=== PATIENT | female | born 1965 | race Caucasian/White ===

== ENCOUNTER → 2021-03-10 | Outpatient (CLI) | payer OTHER ==
--- NOTE | 2021-03-10 11:50 | Diagnostic Imaging Report ---
Lumbar spine at 1107 hours. INDICATION: Low back pain. 3 views were obtained. There are no prior studies available for comparison. FINDINGS: The lateral view shows fairly severe degenerative disc and bony disease at L5-S1 as well as 6 mm of anterior translation of L5 with respect of S1. There is mild narrowing of the disc space at L4-L5. The other intervertebral spaces are well maintained. There is no fracture or acute bony abnormality evident. There is no sign of a paraspinal mass. There is mild symmetrical sclerosis of the sacroiliac joints. IMPRESSION: 1. There is no evidence for an acute bony abnormality. 2. There is fairly severe degenerative disc and bony disease at L5-S1 including a grade 1 spondylolisthesis of L5 with respect to S1. 3. If there is clinical concern regarding spinal stenosis or nerve root encroachment, then MRI would be recommended for further study. Dictated by: Dictated on workstation # [id number]
== END ==
LOC: RAD 10:51
PROVIDERS: ATTEND Anesthesiology Pain Medicine
DX: Z02.71 Encounter for disability determination (principal); M51.37 Other intervertebral disc degeneration, lumbosacral region; M43.16 Spondylolisthesis, lumbar region
CPT/HCPCS: 72100

== ENCOUNTER → 2022-05-12 | Outpatient (CLI) | payer MEDICAID ==
--- NOTE | 2022-05-12 10:45 | Diagnostic Imaging Report ---
Indication: Palpable lump in front of the right ear. Sonographic interrogation of the area palpable lump anterior to the right ear was performed. There is a solid-appearing hypoechoic mass measuring 1.9 x 1.4 x 2.0 cm. This does show some increased vascularity. No other abnormalities are seen IMPRESSION: Solid mass at the area of palpable abnormality. Dedicated CT soft tissue neck study with contrast would be recommended for further evaluation. Dictated by: Dictated on workstation # [id number]
== END ==
LOC: RAD FS 08:46
PROVIDERS: ATTEND Otolaryngology Otolaryngology/Facial Plastic Surgery
DX: Q18.1 Preauricular sinus and cyst (principal)
CPT/HCPCS: 76536

== ENCOUNTER → 2022-05-18 | Outpatient (CLI) | payer MEDICAID ==
[~2022-05-18] MED LIST: CATHETER FLUSH 10 ML SYR IV PRN; HOLD METFORMIN - RECEIVED CONTRAST 20 ML VIAL IV SCH; IOHEXOL 350 MG/ML 100 ML (OMNIPAQUE 350) VIAL IV ONE; NS 100 ML (IVPB) BAG IV ONE
--- NOTE | 2022-05-18 14:56 | Diagnostic Imaging Report ---
CLINICAL INDICATION: Patient with preauricular cyst. EXAM: CT scan of the head and neck performed without and with 75 mL of Omnipaque 350 IV contrast. Sagittal and coronal reformatted images are created. Auto Exposure Controls were utilized during the CT exam to meet ALARA standards for radiation dose reduction. COMPARISON: Ultrasound of the head and neck soft tissue dated 05/12/2022. FINDINGS: CT NECK: There is a 1.9 cm x 1.7 cm x 1.9 cm (AP x Trans x CC) circumscribed mass in the superficial portion of the right parotid gland. This is located anterior to the right ear region. This mass demonstrates enhancement with Hounsfield units of 86 on postcontrast imaging and 51 Hounsfield units on noncontrast imaging. There are multiple lobulated enhancing masses seen near the tail of the right parotid gland. There are two closely adjacent to each other, but are smaller than the one measured above it. 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 There is a prominent right level II-A lymph node, which measures 2.0 cm x 1.6 cm in AP x transverse dimensions. Fatty hilum is seen in the region. There is no other significant neck soft tissue abnormality. The nasopharynx, oropharynx, hypopharynx, and laryngeal soft tissue structures are unremarkable. Thyroid gland is unremarkable. The remainder of the salivary glands are unremarkable. Visualized upper lung [place] are clear. There are degenerative spurs involving the cervical spine, most pronounced at C5-C6 level. There is ipyolykt-df-naadav loss of disc space height at the C5-C6 level. HEAD CT: There is no evidence of acute cerebral infarct, intracranial hemorrhage, or gross mass effect. There is no abnormal IV contrast enhancement. The brain parenchymal volume appears appropriate for patient's age. There is normal cheng-white matter distinction. There is no significant midline shift or herniation. The [place] vascular structures show no gross abnormality as visualized. The sellar and suprasellar regions show no significant abnormality. There is no evidence of hydrocephalus. The basal cisterns are unremarkable. The skull, extracranial soft tissue, and orbits are unremarkable. The paranasal sinuses are unremarkable. Temporal bones show no significant abnormality. IMPRESSION: 1: There are multiple lobulated enhancing masses involving the superficial portion of the right parotid gland. Largest one measures 1.9 cm in greatest dimension. These masses are anterior to the right ear and represent the areas of concern. 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 Other considerations include Warthin's tumors. Pathologic lymph nodes are suspected to be less likely. ENT consultation is suggested for further evaluation. 2: Nonspecific enlarged right level II-A lymph node. 3: The remainder of the neck soft tissue structures are unremarkable. 4: Unremarkable CT scan of the brain. Dictated by: Dictated on workstation # [id number]
== END ==
LOC: RAD FS 12:35
PROVIDERS: ATTEND Otolaryngology Otolaryngology/Facial Plastic Surgery
DX: K11.8 Other diseases of salivary glands (principal); Q18.1 Preauricular sinus and cyst
CPT/HCPCS: 70470; 70492; Q9967

== ENCOUNTER 2022-06-09 05:31 | Outpatient (CLI) | payer MEDICAID ==
[~2022-06-09] VITALS: Ht 170.2 cm; Wt 92.0 kg
[2022-06-10] MEDS ORDERED: TRIA430O4 TP (14:31)
[2022-06-10] MEDS ORDERED: MULT-974 PO (14:31)
[2022-06-10] MEDS ORDERED: LACT1CAP74 PO (14:31)
== END 2022-06-10 15:22 | disposition home or self-care (01) ==
LOC: PREOP 05:31
PROVIDERS: ATTEND Otolaryngology Otolaryngology/Facial Plastic Surgery
DX: Z01.818 Encounter for other preprocedural examination (principal)

== ENCOUNTER 2022-06-17 07:02 | Day surgery (SDC) | payer MEDICAID ==
[~2022-06-17] VITALS: Ht 170 cm; Wt 92.0 kg
[2022-06-17] VITALS (8 sets, daily range): BP systolic 112–145; BP diastolic 67–94
[~2022-06-17 07:02] MED LIST changes: -CATHETER FLUSH 10 ML SYR IV PRN; -HOLD METFORMIN - RECEIVED CONTRAST 20 ML VIAL IV SCH; -IOHEXOL 350 MG/ML 100 ML (OMNIPAQUE 350) VIAL IV ONE; +LACT1CAP74 PO; +MULT-974 PO; -NS 100 ML (IVPB) BAG IV ONE; +TRIA430O4 TP
[2022-06-17] MEDS: LACTATED RINGERS 1,000 ML IV PRN ×2 (07:51→10:37)
[2022-06-17 07:54] LABS: BASOPHILS # (AUTO) 0.1 10^3/uL (0.0-0.1); BASOPHILS % (AUTO) 1 % (0-10); EOSINOPHILS # (AUTO) 0.1 10^3/uL (0.0-0.3); EOSINOPHILS % (AUTO) 2 % (0-10); HEMATOCRIT 37 % (35-52); HEMOGLOBIN 12.8 g/dL (11.5-16.0); LYMPHOCYTES % (AUTO) 30 % (12-44); MEAN CORPUSCULAR HEMOGLOBIN 31 pg (25-34); MEAN CORPUSCULAR HGB CONC 34 g/dL (32-36); MEAN CORPUSCULAR VOLUME 91 fL (80-99); MEAN PLATELET VOLUME 9.5 fL (9.0-12.2); MONOCYTES # (AUTO) 0.5 10^3/uL (0.0-1.0); MONOCYTES % (AUTO) 8 % (0-12); NEUTROPHILS % (AUTO) 59 % (42-75); PLATELET COUNT 258 10^3/uL (130-400); WHITE BLOOD COUNT 6.7 10^3/uL (4.3-11.0)
[2022-06-17 08:00] LABS: POTASSIUM 3.9 MMOL/L (3.6-5.0)
[2022-06-17 08:05] LABS: CREATININE SERUM 0.65 MG/DL (0.60-1.30)
[2022-06-17] MEDS ORDERED: LIDOCAINE PF 2% 5 ML (XYLOCAINE) VIAL ONE (09:16)
[2022-06-17] MEDS ORDERED: MIDAZOLAM 2 MG/2 ML (VERSED) VIAL ONE (09:16)
[2022-06-17] MEDS ORDERED: proPOfol 200 MG/20 ML (DIPRIVAN) VIAL IV ONE (09:16)
[2022-06-17] MEDS ORDERED: SEVOFLURANE (ULTANE) 15 ML INHAL SOLN ONE ×2 (09:16→11:12)
[2022-06-17] MEDS ORDERED: ONDANSETRON 4 MG/2 ML (SDV) Z0FRAN ONE (09:16)
[2022-06-17] MEDS ORDERED: fentaNYL INJ 100 MCG/2 ML AMP ONE (09:16)
[2022-06-17] MEDS ORDERED: LIDOCAINE/EPI 2% 1:200,00 (XYLOCAINE) 20 ML VIAL ONE (09:23)
[2022-06-17] MEDS ORDERED: MUPIROCIN 2% OINT 22 GM (BACTROBAN) TUBE ONE (09:23)
--- NOTE | 2022-06-17 09:54 | Progress Note-Pre Operative ---
Pre-Operative Progress Note Date of Available H&P: Jun 17, 2022 Date H&P Reviewed: Jun 17, 2022 Time H&P Reviewed: 09:00 History & Physical: H&P Reviewed, Patient Examed, No changes noted Changes from last HP none Pre-Operative Diagnosis: Right Parotid Mass JOYCE WHITE MD Jun 17, 2022 09:54
--- NOTE | 2022-06-17 09:55 | Progress Note-Post Operative ---
Post-Operative Progess Note Surgeon (s)/Electron Beam Operator (s) Surgeon JOYCE WHITE MD Electron Beam Operator n/a Pre-Operative Diagnosis Right Parotid Mass Post-Operative Diagnosis same Post-Op Procedure Note Date of Procedure: Jun 17, 2022 Name of Procedure Performed: Excisionb of Right Parotid Mass with FAcial Nerve Preservation Description & Findings Description and Findings: n/a Anesthesia Type get Estimated Blood Loss minimal Packing none. Specimen(s) collected/removed right parotid mas to pathology fresh for possible flow cytometry JOYCE WHITE MD Jun 17, 2022 09:55
[2022-06-17] MEDS ORDERED: HYDROcodone/APAP 5 MG/325 MG (LORTAB) TAB PO PRN (10:00)
[2022-06-17] MEDS ORDERED: ACETAMINOPHEN 325 MG TABLET PO PRN (10:00)
[2022-06-17] MEDS ORDERED: BSS 15 ML ONE (11:01)
--- NOTE | 2022-06-17 11:19 | Anesthesia-General Post-Op ---
General Patient Condition Mental Status/LOC: Same as Preop Cardiovascular: Satisfactory Nausea/Vomiting: Absent Respiratory: Satisfactory Pain: Controlled Complications: Absent Post Op Complications Complications None Follow Up Care/Instructions Patient Instructions None needed. Anesthesia/Patient Condition Patient Condition Patient is doing well, no complaints, stable vital signs, no apparent adverse anesthesia problems. No complications reported per nursing. SOCORRO PALMA CRNA Jun 17, 2022 11:18
[2022-06-17] MEDS ORDERED: ONDANSETRON 4 MG/2 ML (SDV) Z0FRAN IVP PRN (11:30)
[2022-06-17] MEDS ORDERED: fentaNYL INJ 100 MCG/2 ML AMP IVP ONE (11:30)
== END 2022-06-17 13:08 | disposition home or self-care (01) ==
LOC: SDC 07:02
PROVIDERS: ATTEND Otolaryngology Otolaryngology/Facial Plastic Surgery
DX: R59.0 Localized enlarged lymph nodes (principal); F17.210 Nicotine dependence, cigarettes, uncomplicated
CPT/HCPCS: 36415; 80048; 85025; 87081; 93005